=== PATIENT | male | born 1950 | race African-American/Black ===

== ENCOUNTER → 2016-10-03 | Outpatient (CLI) | payer BC ==
[~2016-10-03] MED LIST: AMLO-114 PO; ASPEC81 PO
--- NOTE | 2016-10-03 12:04 | DIAGNOSTIC IMAGING REPORT ---
CT SCAN OF THE ABDOMEN WITH IV CONTRAST CLINICAL HISTORY: Follow-up left renal lesion. COMPARISON STUDY: Abdominal CT dated 09/23/2012. Renal ultrasound dated 09/09/2012. TECHNIQUE: Following the IV administration of 90 cc of Optiray 320, CT scan of the abdomen is performed from the lung bases to the pelvic inlet. Images are reviewed in the axial, sagittal, and coronal planes. IV contrast was administered without complication. Automated dose control exposure was utilized. CT DOSE: 647.38 mGy.cm FINDINGS: Lung bases: The heart is enlarged and without pericardial effusion. There are coronary artery calcifications. The lung bases are clear. A small to moderate hiatal hernia is identified. Liver: The contrast-enhanced liver is normal in size, contour, and attenuation. There is no intrahepatic biliary ductal dilatation. The hepatic veins and portal veins are patent. There is a 1.6 cm hypervascular lesion in hepatic segment VII seen on image #96. This is unchanged from 2013 and likely represents a hemangioma. Gallbladder: There are calcified gallstones. The gallbladder is otherwise normal in appearance. Spleen: Normal in size and attenuation. Pancreas: Unremarkable. Adrenal glands: Mild nodular thickening of the left adrenal gland is unchanged. Kidneys: The contrast enhanced kidneys demonstrate minimal cortical atrophy and are without hydronephrosis. The kidneys enhance symmetrically. No enhancing renal mass is seen. Bilateral cortical and parapelvic cysts are similar to previous and measure up to 2.7 cm. A complex/hyperdense cyst arising from the lower pole of the left kidney is unchanged and measures up to 2.0 cm. Abdominal vasculature: The abdominal aorta is normal in course and caliber noting moderate atherosclerotic calcification. Bowel: Visualized portions of the small bowel and colon are normal in course and caliber. There is advanced diverticulosis of the visualized colon without CT evidence of acute diverticulitis. A normal appendix is partially visualized. Peritoneum: There is no intraperitoneal free air or abdominal ascites. There is a fat-containing umbilical hernia. Lymphadenopathy: None. Skeletal structures: Mild lumbosacral spondylosis is observed. No lytic or blastic lesions are seen. 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 A hemangioma is noted in the body of T12. IMPRESSION: 1. Unchanged appearance of a 2.0 cm complex/hemorrhagic cyst in the lower pole of the left kidney as compared to 2013. 2. Additional cortical and parapelvic renal cysts are again noted. No enhancing renal mass is seen. 3. Cardiomegaly. 4. Cholelithiasis. 5. Advanced colonic diverticulosis without CT evidence of acute diverticulitis. 6. Additional changes as above. Electronically signed by: Mitchell Zapata M.D. 10/03/2016 12:03 PM Dictated Date/Time: 10/03/2016 11:52 AM
== END | disposition home or self-care (01) ==
LOC: C.CTS 10:57
PROVIDERS: ATTEND Family Medicine
DX: Z11.59 Encounter for screening for other viral diseases (principal); N28.1 Cyst of kidney, acquired; I51.7 Cardiomegaly; K80.20 Calculus of gallbladder without cholecystitis without obstruction; K57.30 Diverticulosis of large intestine without perforation or abscess without bleeding